=== PATIENT | female | born 1960 ===

== ENCOUNTER 2018-11-18 15:26 | Outpatient (CLI) | payer OTHER | END 2018-11-18 15:27 | disposition home or self-care (01) | LOC: BICMAMMO 15:26 | PROVIDERS: ATTEND Family Medicine | DX: Z12.31 Encounter for screening mammogram for malignant neoplasm of breast (principal); Z85.3 Personal history of malignant neoplasm of breast | CPT/HCPCS: 77063; 77067 ==